=== PATIENT | male | born 1990 | race Caucasian/White ===

== ENCOUNTER 2018-05-22 16:08 | Emergency (ER) | payer OTHER ==
[~2018-05-22] VITALS: Ht 180.3 cm; Wt 90.7 kg
[~2018-05-22 16:08] MED LIST: ADDERALL 10 MG10 MG PO; ALPRAZOLAM 0.50.5 MG PO; CENTRUM SILVER1 EAC2 PO; CYMBALTA60 MG PO; DOLOPHINE HCL5 MG PO; FLEXERIL PO; HYCET 7.5 MG-3473 ML PO; HYDROCODONE-AP1 EAC6 PO; HYDROXYZINE HCL25 M1 PO; KLONOPIN0.5 MG PO; MOBIC7.5 M1 PO; MOBIC7.5 MG PO; MULTI-DELYN5 ML PO; NEURONTIN 300300 M1 PO; NEURONTIN600 MG PO; NOHOMEMEDICATIONS; NORCO 5-325 TA1 EACH PO; OXYCODONE HCL 55 MG PO; PENICILLIN VK250 MG PO; PENICILLIN VK500 M1 PO; PEPCID20 MG PO; PERCOCET 5-3251 EACH PO; PROTONIX40 M1 PO; ROXICODONE5 MG PO; VITAMIN D2000 UNIT PO; ZOFRAN ODT4 MG PO
[2018-05-22] MEDS ORDERED: SERTRALINE HCL50 MG PO (16:12)
[2018-05-22] MEDS ORDERED: NORCO 5-325 TA1 EACH PO (17:52)
== END 2018-05-22 18:01 | disposition home or self-care (01) ==
LOC: ER 16:08
DX: S61.211A Laceration without foreign body of left index finger without damage to nail, initial encounter (principal); W26.9XXA Contact with unspecified sharp object(s), initial encounter; Y93.89 Activity, other specified; Y92.89 Other specified places as the place of occurrence of the external cause; Y99.8 Other external cause status; F32.9 Major depressive disorder, single episode, unspecified; F41.9 Anxiety disorder, unspecified; K21.9 Gastro-esophageal reflux disease without esophagitis; F17.210 Nicotine dependence, cigarettes, uncomplicated

== ENCOUNTER 2019-04-10 12:03 | Emergency (ER) | payer OTHER ==
[~2019-04-10] VITALS: Ht 180.3 cm; Wt 97.1 kg
[~2019-04-10 12:03] MED LIST changes: +SERTRALINE HCL50 MG PO
[2019-04-10] MEDS ORDERED: CLONAZEPAM 1 MG1 M1 PO (12:16)
[2019-04-10] MEDS ORDERED: METHADONE H5 MG/5 ML PO (12:17)
[2019-04-10] MEDS ORDERED: LEXAPRO20 MG PO (12:18)
[2019-04-10] MEDS ORDERED: ADDERALL 10 MG10 MG PO (12:18)
[2019-04-10] MEDS ORDERED: ABILIFY 2 MG2 M1 PO (12:18)
[2019-04-10] MEDS ORDERED: NEURONTIN600 MG PO (12:19)
[2019-04-10] MEDS ORDERED: PROPRANOLOL 1010 MG PO (12:19)
[2019-04-10 13:19] LABS: HEMATOCRIT 41.4 % (42.0-52.0); HEMOGLOBIN 13.8 gm/dL (14.0-18.0); MCHC 33.4 g/dL (28.0-37.0); MCV 86.9 fL (80.0-100.0); RBC 4.76 mil/uL (4.50-6.00); RDW 14.5 % (10.5-14.5); WBC 10.3 thou/uL (4.0-11.0)
[2019-04-10 13:24] LABS: ANION GAP 11 mmol/L (7-16); BUN 15 mg/dL (7-18); CALCIUM 9.2 mg/dL (8.5-10.1); CHLORIDE 106 mmol/L (98-107); CO2 26 mmol/L (21-32); GLUCOSE 90 mg/dL (74-106); POTASSIUM 3.8 mmol/L (3.5-5.1); SODIUM 143 mmol/L (136-145)
[2019-04-10 13:28] LABS: SALICYLATE 5.2 mg/dL (2.8-20.0)
[2019-04-10 13:48] LABS: AMP/METHAMP Negative (Negative); BARBITURATES Negative (Negative); BENZODIAZEPINES POSITIVE (Negative); COCAINE Negative (Negative); METHADONE POSITIVE (Negative); OPIATES Negative (Negative); PCP Negative (Negative)
[2019-04-10 15:41] VITALS: BP 128/80
== END 2019-04-10 15:25 | disposition other institution (70) ==
LOC: ER 12:03
PROVIDERS: Emergency Medicine Emergency Medical Services
DX: R45.851 Suicidal ideations (principal); F32.9 Major depressive disorder, single episode, unspecified; F41.9 Anxiety disorder, unspecified; K21.9 Gastro-esophageal reflux disease without esophagitis; G89.29 Other chronic pain; M54.9 Dorsalgia, unspecified; F17.210 Nicotine dependence, cigarettes, uncomplicated; Z90.49 Acquired absence of other specified parts of digestive tract; Z98.890 Other specified postprocedural states

== ENCOUNTER 2019-09-04 10:02 | Emergency (ER) | payer OTHER ==
[~2019-09-04] VITALS: Ht 180.3 cm; Wt 97.1 kg
[~2019-09-04 10:02] MED LIST changes: +ABILIFY 2 MG2 M1 PO; +CLONAZEPAM 1 MG1 M1 PO; +LEXAPRO20 MG PO; +METHADONE H5 MG/5 ML PO; +PROPRANOLOL 1010 MG PO
[2019-09-04] MEDS ORDERED: NORCO 5-325 TA1 EAC1 PO (12:10)
[2019-09-04] MEDS ORDERED: AMOXICILLIN875 MG PO (12:10)
[2019-09-04 12:20] VITALS: BP 120/70
== END 2019-09-04 12:30 | disposition home or self-care (01) ==
LOC: ER 10:02
DX: J02.0 Streptococcal pharyngitis (principal); K21.9 Gastro-esophageal reflux disease without esophagitis; F32.9 Major depressive disorder, single episode, unspecified; F41.9 Anxiety disorder, unspecified; F17.210 Nicotine dependence, cigarettes, uncomplicated; Z90.49 Acquired absence of other specified parts of digestive tract

== ENCOUNTER 2020-02-26 08:57 | Emergency (ER) | payer OTHER ==
[~2020-02-26] VITALS: Ht 180.3 cm; Wt 87.1 kg
[~2020-02-26 08:57] MED LIST changes: +AMOXICILLIN875 MG PO; +NORCO 5-325 TA1 EAC1 PO
[2020-02-26 08:59] VITALS: BP 134/80
== END 2020-02-26 09:45 | disposition home or self-care (01) ==
LOC: ER 08:57
DX: J31.0 Chronic rhinitis (principal); Z20.828 Contact with and (suspected) exposure to other viral communicable diseases; K21.9 Gastro-esophageal reflux disease without esophagitis; F32.9 Major depressive disorder, single episode, unspecified; F41.9 Anxiety disorder, unspecified; F17.210 Nicotine dependence, cigarettes, uncomplicated; Z90.49 Acquired absence of other specified parts of digestive tract; Z98.890 Other specified postprocedural states; Z79.2 Long term (current) use of antibiotics; Z79.899 Other long term (current) drug therapy